=== PATIENT | female | born 1945 | race African-American/Black ===

== ENCOUNTER 2017-02-06 06:22 | Emergency (ER) | payer MEDICARE, MEDICAID ==
[~2017-02-06] VITALS: Ht 157.5 cm; Wt 82.0 kg
[~2017-02-06 06:22] MED LIST: AMLODIPINE; ASPI-1158; ATOR20TA; DIAZ-56; MOME13HF2; NAPR-681; NIAC500C8; POTA99TA25; [UNRECOGNIZED DRUG - OTHER]
[2017-02-06 08:43] LABS: BASOPHILS % 0.6 % (0.0-2.0); EOSINOPHILS % 0.7 % (0.0-5.0); HEMATOCRIT. 37.2 % (36.0-48.0); HEMOGLOBIN. 12.3 g/dL (12.0-16.0); LYMPHOCYTES % 17.7 % (20.0-50.0); MEAN CORPUSCULAR HEMOGLOBIN 27.3 pg (28.0-32.0); MEAN CORPUSCULAR VOLUME 82.5 fL (81.0-99.0); MEAN PLATELET VOLUME 8.6 fl (7.4-10.4); MONOCYTES % 6.5 % (2.0-8.0); NEUTROPHILS % 74.5 % (40.0-76.0); PLATELET 277 x1000/uL (130-400); RED BLOOD CELL COUNT 4.51 mill/uL (4.2-5.4); RED CELL DISTRIBUTION WIDTH 14.7 % (11.6-14.6)
[2017-02-06 08:49] LABS: CARBON DIOXIDE 32 mEq/L (21-32); CHLORIDE 104 mEq/L (98-107)
[2017-02-06 09:22] VITALS: BP 118/62
== END 2017-02-06 09:34 | disposition home or self-care (01) ==
LOC: ER 07:14
DX: M79.651 Pain in right thigh (principal); R20.0 Anesthesia of skin; I10 Essential (primary) hypertension; G51.0 Bell's palsy; Z79.82 Long term (current) use of aspirin; J45.909 Unspecified asthma, uncomplicated
CPT/HCPCS: 36415; 80048; 85025; 99284; J1100; J2250; J2405; J3010; J3490; J2704

== ENCOUNTER 2017-04-12 19:18 | Emergency (ER) | payer MEDICARE, MEDICAID ==
[~2017-04-12] VITALS: Ht 160 cm; Wt 82.7 kg
[~2017-04-12 19:18] MED LIST changes: -DIAZ-56; +DIAZ5TAB
[2017-04-12 19:20] VITALS: BP 144/71
== END 2017-04-12 21:35 | disposition left against medical advice (07) ==
LOC: ER 19:20
DX: R00.8 Other abnormalities of heart beat (principal); Z53.21 Procedure and treatment not carried out due to patient leaving prior to being seen by health care provider

== ENCOUNTER → 2017-07-12 | Outpatient (CLI) | payer MEDICARE, MEDICAID ==
[2017-07-12 10:32] LABS: BASOPHILS % 0.5 % (0.0-2.0); EOSINOPHILS % 0.5 % (0.0-5.0); HEMATOCRIT. 38.6 % (36.0-48.0); LYMPHOCYTES % 18.6 % (20.0-50.0); MEAN CORPUSCULAR HEMOGLOBIN 28.5 pg (28.0-32.0); MEAN CORPUSCULAR VOLUME 84.7 fL (81.0-99.0); MEAN PLATELET VOLUME 8.9 fl (7.4-10.4); MONOCYTES % 5.5 % (2.0-8.0); NEUTROPHILS % 74.9 % (40.0-76.0); PLATELET 264 x1000/uL (130-400); RED BLOOD CELL COUNT 4.56 mill/uL (4.2-5.4); RED CELL DISTRIBUTION WIDTH 14.8 % (11.6-14.6)
[2017-07-12 10:47] LABS: CHLORIDE 108 mEq/L (98-107)
[2017-07-12 10:55] LABS: HDL CHOLESTEROL 57 mg/dL (40-59); LDL CHOLESTEROL 184 mg/dL (5-100)
== END | disposition home or self-care (01) ==
LOC: LAB 10:02
PROVIDERS: ATTEND Internal Medicine Nephrology
DX: I10 Essential (primary) hypertension (principal); R73.9 Hyperglycemia, unspecified
CPT/HCPCS: 36415; 80053; 80061; 83036; 85025

== ENCOUNTER 2018-09-17 08:59 | Emergency (ER) | payer MEDICARE, MEDICAID ==
[~2018-09-17] VITALS: Ht 157.5 cm; Wt 83.0 kg
[2018-09-17] MEDS ORDERED: NAPROXEN 375MG TABLET PO ONE (11:30)
[2018-09-17 12:47] VITALS: BP 139/61
== END 2018-09-17 12:50 | disposition home or self-care (01) ==
LOC: ER 09:30
DX: M25.512 Pain in left shoulder (principal); G51.0 Bell's palsy; R29.810 Facial weakness; I10 Essential (primary) hypertension; Z79.899 Other long term (current) drug therapy
CPT/HCPCS: 73030; 93005; 99283

== ENCOUNTER → 2019-02-05 | Outpatient (CLI) | payer MEDICARE, MEDICAID ==
[2019-02-05 10:01] LABS: CHLORIDE 107 mEq/L (98-107)
== END | disposition home or self-care (01) ==
LOC: LAB 08:55
PROVIDERS: ATTEND Internal Medicine Nephrology
DX: I10 Essential (primary) hypertension (principal)
CPT/HCPCS: 36415; 80048

== ENCOUNTER → 2019-03-28 | Outpatient (CLI) | payer MEDICARE, MEDICAID | END | disposition home or self-care (01) | LOC: RAD 09:21 | PROVIDERS: ATTEND Internal Medicine Nephrology | DX: R05 Cough (principal) | CPT/HCPCS: 71045 ==